=== PATIENT | female | born 1940 | race Caucasian/White ===

== ENCOUNTER → 2018-09-16 | Outpatient (CLI) | payer MEDICARE, OTHER, SELFPAY ==
--- NOTE | 2018-09-16 13:05 | MRI_ITS ---
STUDY: MRI BRAIN WITH AND WITHOUT CONTRAST (ATTENTION PITUITARY GLAND) REASON FOR EXAM: Female, 78 years old. Pituitary adenoma TECHNIQUE: Standardized multiplanar fat and water weighted pulse sequences were obtained. 17 IV Dotarem was administered for the contrast portion of the examination. COMPARISON: January 16 2017. FINDINGS: There is a large heterogeneously enhancing parasellar mass extending to the left of midline encasing displacing left cavernous carotid. The lesion measures approximately 4.6 x 3.7 x 2 cm. Mass appears to extend into the left sphenoid sinus and towards the apex of the left orbit. The lesion extends posteriorly to the cerebellopontine angle cistern and perimesencephalic cistern. Normal infundibular stalk and suprasellar cistern. Normal optic chiasm and hypothalamus. Mild atrophy and moderate periventricular white matter ischemic changes without evidence for acute infarct. Normal bilateral basal ganglia. Normal thalami. Normal flow voids within the major intracranial circulation suggesting patency by spin echo criteria. Normal venous enhancement. There is no enhancing intra-axial or extra-axial abnormality. There is no extra-axial fluid accumulation. Normal tectal plate and pineal gland. Normal midbrain, gladys and medulla. Normal cerebellum. Normal basal cisterns. Normal bilateral temporal bones. Normal bilateral internal auditory canals. Postsurgical changes of left orbit.. Minor mucosal thickening of the maxillary and ethmoid sinuses. Normal calvarium and skull base. Normal visualized upper cervical spine. Normal visualized soft tissue structures. Size of the mass is not changed appreciably since prior exam MRI/Brain W/WO Contrast IMPRESSION: Stable appearance to known pituitary adenoma more pronounced to the left of the midline with findings as above Moderate periventricular white matter ischemic changes without evidence for acute infarct. Electronically Signed: Micah Roque MD at 17:00 EDT , Service support ,
[2018-09-16 13:38] LABS: Anion Gap 5 (5-15); BUN 21 mg/dL (7-18); BUN/Creat Ratio 20.4 RATIO (10-20); Calcium,Total 9.7 mg/dL (8.5-10.1); Chloride 102 mmol/L (98-107); Creatinine, Serum 1.03 mg/dL (0.55-1.02); EST Glomerular Filtration Rate 55 mL/min (>60); Est Glom Filt Rate - Afr Amer 67 mL/min (>60); Glucose 84 mg/dL (74-106); Potassium 3.8 mmol/L (3.5-5.1); Sodium Level 138 mmol/L (136-145)
== END | disposition home or self-care (01) ==
LOC: MRI 12:59
PROVIDERS: Family Provider Family Medicine; PCP Family Medicine; Referring Provider Internal Medicine Endocrinology, Diabetes & Metabolism; Visit Provider Internal Medicine Endocrinology, Diabetes & Metabolism
DX: D35.2 Benign neoplasm of pituitary gland (principal); E03.8 Other specified hypothyroidism
CPT/HCPCS: 36415; 70553; 80048; 84439; A9575

== ENCOUNTER 2018-11-27 10:20 | Emergency (ER) | payer MEDICARE, OTHER, SELFPAY ==
[2018-11-27 10:21] VITALS: BP 138/71; PULSE 75; RESP 16; TEMP 36.8; O2SAT 99; BMI 29.1
--- NOTE | 2018-11-27 10:42 | CT_ITS ---
STUDY: CT BRAIN WITHOUT CONTRAST REASON FOR EXAM: Female, 78 years old. Dizziness. Pituitary adenoma. RADIATION DOSAGE (If Supplied By Facility): CTDIvol = ( 44.99 ) mGy, DLP = ( 745.49 ) mGycm TECHNIQUE: Transaxial CT imaging of the brain was performed without administration of intravenous contrast material. Individualized dose optimization techniques were used for this CT. COMPARISON: MRI September 16, 2018 FINDINGS: Normal soft tissue structures. There is a 3.8 cm left parasellar mass with osseous destruction of the skull base extending to the orbital apex. There is displacement of the cavernous carotid artery. There is mild cerebral atrophy with widening of the extra-axial spaces and ventricular dilatation. There are areas of decreased attenuation within the white matter tracts of the supratentorial brain, consistent with microvascular disease changes. Normal basal ganglia and thalami. Normal brainstem. Normal cerebellum. There is no intracranial hemorrhage. There are no findings of an acute ischemic infarction. There are atherosclerotic calcifications. Mass extends to the sphenoid sinus. CT/Brain/Head without Contrast IMPRESSION: Left parasellar mass with osseous destruction. No acute hemorrhage. Electronically Signed: Branden Jones MD at 11:50 EDT , Service support ,
--- NOTE | 2018-11-27 10:43 | EKG12_ITS ---
Test Reason : DIZZINESS Blood Pressure : / mmHG Vent. Rate : 075 BPM Atrial Rate : 075 BPM P-R Int : 140 ms QRS Dur : 084 ms QT Int : 416 ms P-R-T Axes : 064 026 069 degrees QTc Int : 464 ms Normal sinus rhythm with sinus arrhythmia Low voltage QRS Borderline ECG Confirmed by ROBERT EMANUEL, FIDENCIO ([id number]), medical editor JAZMÍN AWAD ([id number] on 12/01/2018 9:45:48 AM Referred By: Confirmed By:ARIA JONES MD
--- NOTE | 2018-11-27 10:44 | ED.DCSUM_ITS ---
History of Present Illness Chief Complaint: Dizziness Detail of Chief Complaint: Dizzy and off-balance Informant: Patient Onset: Today Current Severity: Mild Maximum Severity: Mild Narrative: Patient reports getting up at 2:00 in the morning to go to the restroom. She felt like she was off balance and was walking toward the right. She was able to get back to bed and go to sleep. When she got up this morning symptoms persisted. She had denies any symptoms when she is lying flat. When she turns her head this re-creates her symptoms. She does have a history of a pituitary adenoma. Most recent MRI was obtained in September and showed that it had enlarged in size only minimally. She denies headache or vision change. She denies chest pain or palpitations. Past Medical History - Allergies and Home Meds Allergies/Adverse Reactions: Allergies morphine Adverse Reaction (Verified 11/27/18 10:24) Other IT MAKES ME STOP BREATHING Primary Care Physician: Cody Veronica MD [Primary Care Provider] - Prior records reviewed: Yes Past Medical History: - - Reviewed Lives: Alone Review of Systems General: Denies: Chills, Fever Eyes: Denies: Visual changes - bilaterally ENT: Denies: Bilateral ear pain Cardiovascular: Denies: Chest pain, Palpitations Respiratory: Denies: Dyspnea, Cough Gastrointestinal: Denies: Abdominal pain, Nausea, Vomiting, Diarrhea Genitourinary: Denies: Dysuria Musculoskeletal: Denies: Neck pain, Back pain Neurological: Denies: Headache Hematologic: Denies: Easy bruising, Easy bleeding Allergy: Denies: Uticaria Physical Exam Vital Signs/Narrative: Vital Signs Temp Pulse Resp BP Pulse Ox 11/27/18 10:21 98.3 F 75 16 138/71 H 99 Inital Vital Signs reviewed: Yes General: Well nourished, Well developed Head: Normocephalic Eyes: Perrl, EOMI ENT: Moist mucous membranes Neck: Supple Cardiovascular: Regular rate, Regular rhythm Respiratory: No distress, CTA bilaterally Abdomen: Soft, Nontender Back: Nontender Extremities: Nontender Skin: Normal color, No rash Neurological: Alert, Oriented x3, Normal Strength, Normal Sensation Psychological: Normal affect Diagnostic/Tx/Re-eval Impressions Brain CT 11/27/18 10:42 IMPRESSION: Left parasellar mass with osseous destruction. No acute hemorrhage. Electronically Signed: Branden Jones MD at 11:50 EDT , Service support , 11/27/18 10:42 Brain/Head without Contrast [CT] Stat Laboratory Results 11/27/18 11/27/18 11/27/18 10:44 10:44 10:49 WBC 6.8 RBC 4.48 Hgb 14.1 Hct 43.5 MCV 97.1 MCH 31.5 MCHC 32.4 RDW Std Deviation 45.8 H RDW Coeff of Jovanny 12.8 Plt Count 302 MPV 11.6 Immature Gran % (Auto) 0.300 Neut % (Auto) 62.7 Lymph % (Auto) 26.7 [place] % (Auto) 7.2 Eos % (Auto) 2.5 Baso % (Auto) 0.6 Absolute Neuts (auto) 4.3 Absolute Lymphs (auto) 1.81 Nucleated RBC % 0 Sodium 140 Potassium 3.7 Chloride 104 Carbon Dioxide 30.0 Anion Gap 6 BUN 16 Creatinine 0.92 Estim Creat Clear Calc 49.80 Est GFR (MDRD) Af Amer 76 Est GFR (MDRD) Non-Af 63 BUN/Creatinine Ratio 17.4 Glucose 112 H Calcium 9.0 Urine Color Yellow Urine Clarity Sl. Cloudy Urine pH 7.0 Ur Specific [place] 1.010 Urine Protein Negative Urine Glucose (UA) Normal Urine Ketones Negative Urine Occult Blood 25 H Urine Nitrite Negative Urine Bilirubin Negative Urine Urobilinogen 1 H Ur Leukocyte Esterase 500 H Urine RBC 0 SEEN Urine WBC 5-10 SEEN Ur Squamous Epith Cells 0 SEEN Urine Bacteria 3+ Urine Mucus 0 SEEN - EKG Initial EKG Interpretation: Sinus Rhythm - Sinus at 75 with no acute ischemia. - Medical Decision Making Patient was given Antivert. On repeat evaluation she does feel improved. Test results were discussed with her including the indication of a urinary tract infection. She will be treated with Bactrim as well as Antivert at home. The CT of the head reveals mass with bony destruction. I specifically called the radiologist to ask if this was similar to her MRI from September 16. Best he can tell it looks about the same. CT scan will be copied onto a disc so that it can be taken to her specialist in [place] for comparison. Family is comfortable with this plan. ED Disposition - Plan for ED Patient: Disposition: Home or Assisted Living Diagnosis: Vertigo, UTI (urinary tract infection) Instructions: Benign Positional Vertigo, Bladder Infection, Female (Adult) Prescriptions: Meclizine HCl [Antivert] 25 mg PO 4X/DAY PRN PRN #20 tablet PRN Reason: Dizziness Smz/Tmp Ds [Bactrim Ds] 1 tablet PO BID #6 tablet Referrals: Cody Veronica MD [Primary Care Provider] - 1 Week if not improving
[2018-11-27] MEDS: Meclizine HCl 25 MG Tablet PO (11:02)
[2018-11-27] MEDS: 0.9% Normal Saline 1,000 ML 150 ML IV (11:02)
[2018-11-27 11:12] LABS: Absolute Lymphocyte Count 1.81 X10^3/uL (0.83-4.51); Absolute Neutrophil Count 4.3 X10^3/uL (2.0-7.7); Basophil# 0.04 X10^3/uL; Basophil% 0.6 % (0-1); Eosinophil# 0.17 X10^3/uL; Eosinophils% 2.5 % (0-5); Hematocrit 43.5 % (37-47); Hemoglobin 14.1 g/dL (12.0-15.0); Lymphocyte # 1.81 X10^3/ul (4.0); Lymphocyte % 26.7 % (19-41); Mean Corp Hgb Conc 32.4 g/dL (32-36); Mean Corpuscular Hgb 31.5 pg (27.0-32.0); Mean Corpuscular Volume 97.1 fL (81-99); Mean Platelet Vol. 11.6 fl (6.2-12.0); Monocyte# 0.49 X10^3/uL; Monocyte% 7.2 % (0-10); NRBC Flagged by Analyzer 0 % (0-5); Neutrophil # 4.25 X10^3/uL (2.7-7.7); Neutrophil % 62.7 % (47-70); Platelet Count 302 K/mm3 (150-450); RBC Distribution Width CV 12.8 % (11.6-14.6); RBC Distribution Width SD 45.8 fl (35.1-43.9); Red Blood Count 4.48 M/mm3 (4.2-5.4); White Blood Count 6.8 K/mm3 (4.4-11.0)
[2018-11-27 11:21] LABS: Anion Gap 6 (5-15); BUN 16 mg/dL (7-18); BUN/Creat Ratio 17.4 RATIO (10-20); Chloride 104 mmol/L (98-107); Creatinine, Serum 0.92 mg/dL (0.55-1.02); EST Glomerular Filtration Rate 63 mL/min (>60); Est Glom Filt Rate - Afr Amer 76 mL/min (>60); Glucose 112 mg/dL (74-106); Potassium 3.7 mmol/L (3.5-5.1); Sodium Level 140 mmol/L (136-145)
[2018-11-27 11:25] LABS: Mucous, Urine 0 SEEN /hpf (<or=2+); Red Blood Cells-Urine 0 SEEN /hpf (0-5); Squamous Epithelial Cells - UA 0 SEEN /hpf (5-10)
[2018-11-27 11:26] LABS: Color, Urine Yellow (Yellow); Glucose, Dipstick Normal (Normal); Ketone-Dipstick Negative (Negative); Leukocyte Esterase-Dipstick 500 /ul (Negative); Nitrite-Dipstick Negative (Negative); Occult Blood-Urine 25 /ul (Negative); Protein-Dipstick Negative (Negative); Urine Bilirubin Dipstick Negative (Negative); Urine Clarity Sl. Cloudy (Clear); Urine Urobilinogen 1 mg/dl (Normal)
[2018-11-27 11:36] LABS: White Blood Cells 5-10 SEEN /hpf (0-5)
[2018-11-27 11:37] LABS: Bacteria 3+ /hpf (None Seen)
[2018-11-27 12:44] VITALS: BP 125/65; PULSE 73; RESP 20; O2SAT 94
== END 2018-11-27 12:44 | disposition home or self-care (01) ==
PROVIDERS: Emergency Provider Emergency Medicine; Family Provider Family Medicine; PCP Family Medicine
DX: R42 Dizziness and giddiness (principal); N39.0 Urinary tract infection, site not specified; D35.2 Benign neoplasm of pituitary gland
CPT/HCPCS: 70450; 80048; 81001; 85025; 93005; 96360; 96361; 99285; J7030; A4216